=== PATIENT | male | born 1945 | race Caucasian/White ===

== ENCOUNTER 2020-05-04 15:07 | Observation (INO) ==
[2020-05-04] MEDS ORDERED: NITROGLYCERIN SL 0.4 MG TABLET SL PRN ×2 (16:15→17:40)
[2020-05-04 16:31] LABS: Basophils # 0.1 10*3/uL (0.0-0.2); Basophils % 0.6 % (0.0-0.8); Eosinophils # 0.2 10*3/uL (0.0-0.87); Eosinophils % 2.6 % (0.00-10.9); Hematocrit 41.3 VOL% (42.0-52.0); Hemoglobin 13.6 GM/DL (14.0-18.0); Immature Granulocytes % 0.4 %; Immature Granulocytes Absolute 0.03 #; Lymphocytes % 25.5 % (21.2-54.2); Mean Corpuscular HGB Conc 32.9 GM/DL (32-36); Mean Corpuscular Volume 94.9 FL (87-102); Mean Platelet Volume 11.3 FL (9.6-12.0); Monocytes % 5.5 % (1.7-12.7); Neutrophils % 65.4 % (38.7-73.9); Platelet Count 206 T/CUMM (130-400); Red Blood Count 4.35 MC/CUMM (3.8-5.5); Red Cell Distribution Width 14.1 % (9.3-17.3); White Blood Count 7.7 T/CUMM (4-12)
[2020-05-04 16:39] LABS: Calcium 9.3 MG/DL (8.5-10.1); Osmolality,Calculated 287.4 MOS/KG (273-304); PT Patient Result 10.8 SECS (9.8-11.9)
[2020-05-04] MEDS ORDERED: MORPHINE 4 MG/1 ML VIAL IV STA (16:44)
[2020-05-04] MEDS ORDERED: ACETAMINOPHEN 325 MG TABLET PO PRN (17:45)
[2020-05-04] MEDS ORDERED: GLUCAGON 1 MG VIAL IM PRN ×2 (17:45→18:00)
[2020-05-04] MEDS ORDERED: ONDANSETRON 4 MG/2 ML VIAL IV PRN (17:45)
[2020-05-04] MEDS ORDERED: DEXTROSE 50% 25 GM/50 ML VIAL IV PRN ×2 (17:45→18:00)
[2020-05-04] MEDS ORDERED: ENOXAPARIN 40 MG/0.4 ML SYRINGE SUBCUT SCH (21:00)
[2020-05-04] MEDS ORDERED: FOLIC ACID 0.4 MG TABLET PO SCH (21:00)
[2020-05-04] MEDS ORDERED: ASPIRIN EC 81 MG TABLET PO SCH (21:00)
[2020-05-04] MEDS ORDERED: SELENIUM 200 MCG TABLET PO SCH (21:00)
[2020-05-04] MEDS ORDERED: PANTOPRAZOLE 40 MG TABLET PO SCH (21:00)
[2020-05-04] MEDS ORDERED: POTASSIUM CHLORIDE 20 MEQ TABLET PO SCH (21:00)
[2020-05-04] MEDS ORDERED: CETIRIZINE 10 MG TABLET PO SCH (21:00)
[2020-05-04] MEDS ORDERED: CHOLECALCIFEROL 1,000 UNIT TABLET PO SCH (21:00)
[2020-05-04] MEDS ORDERED: CLOPIDOGREL 75 MG TABLET PO SCH (21:00)
[2020-05-04] MEDS ORDERED: ROSUVASTATIN 20 MG TABLET PO SCH (21:00)
[2020-05-04] MEDS: NICOTINE 7 MG/24 HR PATCH TRANSDERM SCH (21:56)
[2020-05-04] MEDS: INSULIN LISPRO 100 UNIT/ML SUBCUT SCH (21:58)
[2020-05-05 05:23] LABS: Basophils % 0.6 % (0.0-0.8); Eosinophils # 0.3 10*3/uL (0.0-0.87); Eosinophils % 4.2 % (0.00-10.9); Hematocrit 40.5 VOL% (42.0-52.0); Hemoglobin 13.5 GM/DL (14.0-18.0); Immature Granulocytes % 0.3 %; Immature Granulocytes Absolute 0.02 #; Lymphocytes % 29.8 % (21.2-54.2); Mean Corpuscular HGB Conc 33.3 GM/DL (32-36); Mean Corpuscular Volume 93.3 FL (87-102); Mean Platelet Volume 11.1 FL (9.6-12.0); Neutrophils % 58.1 % (38.7-73.9); Platelet Count 173 T/CUMM (130-400); Red Blood Count 4.34 MC/CUMM (3.8-5.5); Red Cell Distribution Width 13.9 % (9.3-17.3); White Blood Count 6.7 T/CUMM (4-12)
[2020-05-05 05:51] LABS: Osmolality,Calculated 281.4 MOS/KG (273-304)
[2020-05-05] MEDS: NICOTINE 7 MG/24 HR PATCH TRANSDERM SCH (08:43)
[2020-05-05] MEDS: INSULIN LISPRO 100 UNIT/ML SUBCUT SCH ×2 (08:43→13:34)
[2020-05-05] MEDS ORDERED: TAMSULOSIN 0.4 MG CAPSULE PO SCH (09:00)
[2020-05-05] MEDS ORDERED: MONTELUKAST 10 MG TABLET PO SCH (09:00)
[2020-05-05 12:07] VITALS: BP 111/55
== END 2020-05-05 13:10 | disposition home or self-care (01) ==
LOC: N.ED 15:07 → N.EDINP 15:07 → N.TELEN 18:08
PROVIDERS: ADMIT Internal Medicine Geriatric Medicine; ATTEND Internal Medicine Geriatric Medicine

== ENCOUNTER 2022-04-13 09:57 | Observation (INO) ==
[2022-04-13] MEDS ORDERED: NITROGLYCERIN 2% OINT 1 INCH/GM PACK TOP STA ×2 (10:19)
[2022-04-13] MEDS ORDERED: MORPHINE 2 MG/1 ML SYRINGE IV STA ×2 (10:19)
[2022-04-13 10:24] LABS: Basophils % 0.4 % (0.0-0.8); Eosinophils # 0.2 10*3/uL (0.0-0.87); Hematocrit 40.4 VOL% (42.0-52.0); Hemoglobin 13.5 GM/DL (14.0-18.0); Immature Granulocytes % 0.3 %; Immature Granulocytes Absolute 0.02 #; Lymphocytes # 1.8 10*3/uL (1.4-4.0); Lymphocytes % 22.8 % (21.2-54.2); Mean Corpuscular HGB Conc 33.4 GM/DL (32-36); Mean Platelet Volume 10.6 FL (9.6-12.0); Monocytes # 0.5 10*3/uL (0.11-0.8); Monocytes % 6.9 % (1.7-12.7); Neutrophils % 67.6 % (38.7-73.9); Platelet Count 194 T/CUMM (130-400); Red Cell Distribution Width 13.9 % (9.3-17.3); White Blood Count 7.8 T/CUMM (4-12)
[2022-04-13 10:41] LABS: PT Patient Result 11.1 SECS (10.1-12.1); Partial Thromboplastin Time 26.7 SECS (23.7-32.9)
[2022-04-13 10:45] LABS: Alanine Aminotransferase 25 U/L (16-61); Albumin 3.7 G/DL (3.4-5.0); Alkaline Phosphatase 105 U/L (45-117); Aspartate Amino Transferase 16 U/L (0-37); Bilirubin,Total < 0.39 MG/DL (0.20-1.00); Blood Urea Nitrogen 21 MG/DL (7-18); Calcium 9.2 MG/DL (8.5-10.1); Carbon Dioxide 27 MMOL/L (21-32); Chloride 109 MMOL/L (98-107); Glucose 155 MG/DL (74-106); Osmolality,Calculated 288.1 MOS/KG (273-304); Potassium 3.4 MMOL/L (3.5-5.1); Sodium 142 MMOL/L (136-145); Total Protein 6.7 G/DL (6.4-8.2)
[2022-04-13] MEDS ORDERED: NITROGLYCERIN SL 0.4 MG TABLET SL PRN (11:29)
[2022-04-13] MEDS ORDERED: MORPHINE 2 MG/1 ML SYRINGE IV PRN (11:31)
[2022-04-13] MEDS ORDERED: ONDANSETRON 4 MG/2 ML VIAL IV PRN (11:31)
[2022-04-13] MEDS ORDERED: GLUCAGON 1 MG VIAL IM PRN ×2 (11:31)
[2022-04-13] MEDS ORDERED: ACETAMINOPHEN 325 MG TABLET PO PRN (11:31)
[2022-04-13] MEDS ORDERED: DEXTROSE 50% 25 GM/50 ML VIAL IV PRN (11:31)
[2022-04-13] MEDS ORDERED: DEXTROSE 10% 250 ML BAG IV PRN (11:41)
[2022-04-13] MEDS: LACTATED RINGERS 1,000 ML IV SCH (14:09)
[2022-04-13] MEDS: ENOXAPARIN 40 MG/0.4 ML SYRINGE SUBCUT SCH (14:10)
[2022-04-13] MEDS: INSULIN LISPRO 100 UNIT/ML SUBCUT SCH ×2 (16:18→21:37)
[2022-04-13] MEDS ORDERED: ASPIRIN EC 81 MG TABLET PO SCH (21:00)
[2022-04-13] MEDS ORDERED: NON-FORMULARY MEDICATION (Levocetirizine 5 mg tablet) PO SCH (21:00)
[2022-04-13] MEDS ORDERED: CLOPIDOGREL 75 MG TABLET PO SCH (21:00)
[2022-04-13] MEDS ORDERED: ROSUVASTATIN 20 MG TABLET PO SCH (21:00)
[2022-04-13] MEDS ORDERED: PANTOPRAZOLE 40 MG TABLET PO SCH (21:00)
[2022-04-13] MEDS ORDERED: METOPROLOL SUCCINATE XL 100 MG TABLET PO SCH (21:00)
[2022-04-13] MEDS ORDERED: POTASSIUM CHLORIDE 20 MEQ TABLET PO SCH (21:00)
[2022-04-13] MEDS ORDERED: NON-FORMULARY MEDICATION (Selenium 200 MCG capsule) PO SCH (21:00)
[2022-04-14] MEDS: LACTATED RINGERS 1,000 ML IV SCH ×2 (00:17→09:15)
[2022-04-14 06:07] LABS: Basophils % 0.3 % (0.0-0.8); Eosinophils # 0.3 10*3/uL (0.0-0.87); Eosinophils % 2.7 % (0.00-10.9); Hematocrit 37.4 VOL% (42.0-52.0); Hemoglobin 12.4 GM/DL (14.0-18.0); Immature Granulocytes % 0.3 %; Immature Granulocytes Absolute 0.03 #; Lymphocytes # 1.6 10*3/uL (1.4-4.0); Lymphocytes % 16.7 % (21.2-54.2); Mean Corpuscular HGB Conc 33.2 GM/DL (32-36); Mean Platelet Volume 10.4 FL (9.6-12.0); Monocytes # 0.5 10*3/uL (0.11-0.8); Monocytes % 5.5 % (1.7-12.7); Neutrophils % 74.5 % (38.7-73.9); Platelet Count 183 T/CUMM (130-400); Red Blood Count 3.98 MC/CUMM (3.8-5.5); Red Cell Distribution Width 13.9 % (9.3-17.3); White Blood Count 9.3 T/CUMM (4-12)
[2022-04-14 06:25] LABS: Calcium 8.7 MG/DL (8.5-10.1); Osmolality,Calculated 280.4 MOS/KG (273-304); Potassium 4.2 MMOL/L (3.5-5.1)
[2022-04-14] MEDS: INSULIN LISPRO 100 UNIT/ML SUBCUT SCH ×2 (07:56→12:23)
[2022-04-14] MEDS ORDERED: TAMSULOSIN 0.4 MG CAPSULE PO SCH (09:00)
[2022-04-14] MEDS ORDERED: MONTELUKAST 10 MG TABLET PO SCH (09:00)
[2022-04-14] MEDS ORDERED: POTASSIUM CHLORIDE 20 MEQ TABLET PO ONE (10:01)
[2022-04-14] MEDS ORDERED: PANTOPRAZOLE 40 MG TABLET PO SCH (10:30)
[2022-04-14 11:25] LABS: Risk Ratio 3.27; VLDL Cholesterol 21.6 MG/DL
[2022-04-14 12:23] VITALS: BP 122/70
[2022-04-14] MEDS: ENOXAPARIN 40 MG/0.4 ML SYRINGE SUBCUT SCH (13:00)
== END 2022-04-14 13:52 | disposition home or self-care (01) ==
LOC: N.ED 09:57 → N.EDINP 09:57 → SUATTDRO 11:31 → N.2W 11:51
PROVIDERS: ADMIT Phlebology; ATTEND Family Medicine